=== PATIENT | male | born 1960 | race Caucasian/White ===

== ENCOUNTER 2024-02-24 10:25 | Outpatient (CLI) | payer OTHER, SELFPAY ==
--- NOTE | 2024-02-24 10:33 | XR_ITS ---
WS: [email or web address] XR knee LT 1-2V [id number] REASON FOR EXAM: JOINT PAIN FINDINGS: No fracture or focal bone lesion. There is deformity of the medial tibial plateau suggesting previous tibial plateau fracture. There is moderate narrowing of the medial knee joint space with moderate subchondral sclerosis and marginal o steophytosis. There is a significant medial shift of the femur. Mild narrowing of the lateral knee joint space with moderate subchondral sclerosis and significant ma rginal osteophytosis. Patellofemoral joint space is intact with moderate subchondral sclerosis and osteophytosis of the pat carl. Moderate osteophytosis of the femoral condyles. XR/XR knee LT 1-2V [id number] IMPRESSION: Moderate to significant osteoarthritis of the left knee joint, possibly post tr aumatic.
--- NOTE | 2024-02-24 10:33 | XR_ITS ---
WS: [email or web address] XR shoulder RT min 2V* [id number] REASON FOR EXAM: JOINT PAIN FINDINGS: No fracture or focal bone lesion. Mild narrowing of the acromioclavicular joint with mild subchondral sclerosis and moderate marginal o steophytosis. The glenohumeral joint space is not optimally demonstrated. There is significant osteophytosis of the humeral head and moderate subchondral sclerosis in the greg oid. Moderate subchondral sclerosis in the greater tuberosity. XR/XR shoulder RT min 2V* [id number] IMPRESSION: Moderate osteoarthritis at the acromioclavicular joint. Glenohumeral joint space is not optimally demonstrated. There are findings sugg esting significant osteoarthritis in the glenohumeral joint. Moderate rotator cuff tendon arthropathy.
--- NOTE | 2024-02-24 10:33 | XR_ITS ---
WS: [email or web address] XR lumbar spine 2-3V* [id number] REASON FOR EXAM: JOINT PAIN FINDINGS: Moderate levoscoliosis of the lumbar spine relatively normal lordosis. Moderate wedge-shaped compression deformity of L2 with associated vertebral body sclerosis. Mild wedge-shaped compression deformity of L1 and biconcave compression deformities of L3-L5 which ap pear chronic. Intervertebral disc spaces are intact and relatively well preserved. Moderate degenerative arthropathy in the facet joints at L5-S1. XR/XR lumbar spine 2-3V* [id number] IMPRESSION: Compression fracture of L2 of unknown chronicity.
== END 2024-02-24 10:26 | disposition home or self-care (01) ==
LOC: RAD 10:28
PROVIDERS: Visit Provider Dermatology
DX: Z02.71 Encounter for disability determination (principal); M19.011 Primary osteoarthritis, right shoulder; M75.101 Unspecified rotator cuff tear or rupture of right shoulder, not specified as traumatic; M48.56XA Collapsed vertebra, not elsewhere classified, lumbar region, initial encounter for fracture; M41.86 Other forms of scoliosis, lumbar region; M46.96 Unspecified inflammatory spondylopathy, lumbar region; M17.12 Unilateral primary osteoarthritis, left knee; M25.861 Other specified joint disorders, right knee; M25.762 Osteophyte, left knee
CPT/HCPCS: 72100; 73030; 73560

== ENCOUNTER 2024-12-23 03:16 | Emergency (ER) | payer BC, SELFPAY ==
[2024-12-23 03:20] VITALS: BP 161/103; PULSE 97; RESP 18; TEMP 36.4; O2SAT 98; BMI 25.2
--- NOTE | 2024-12-23 03:20 | ECG_ITS ---
[facility]: 2024-[facility]-23 Pat Name: Ricky Fonseca Department: Room: Gender: Male Crusher Operator: : 1960 Requested By: Amber Yu Order Number: [id number] Reading MD: Measurements Intervals [place] Rate: 93 P: 70 NV: 180 QRS: 2 QRSD: 90 T: 71 QT: 391 QTc: 486 Interpretive Statements SINUS RHYTHM NONSPECIFIC T-WAVE ABNORMALITY [email or web address]
--- NOTE | 2024-12-23 03:20 | CTR_ITS ---
PROCEDURE INFORMATION: Exam: CT Head Without Contrast Exam date and time: 12/23/2024 3:19 AM Age: 64 years old Clinical indication: Stroke-like symptoms; RT upper extremity and RT lower extremity weakness; Additional info: Possible stroke TECHNIQUE: Imaging protocol: Computed tomography of the head without contrast. Radiation optimization: All CT scans at this facility use at least one of these dose optimization techniques: automated exposure control; mA and/or kV adjustment per patient size (includes targeted exams where dose is matched to clinical indication); or iterative reconstruction. Other technique: STROKE PROTOCOL was implemented. COMPARISON: No relevant prior studies available. RADIATION DOSE METRICS: Total DLP (mGy-cm): 1152.98 FINDINGS: Brain: Normal. No hemorrhage. Unremarkable white matter. No mass effect. Cerebral ventricles: No ventriculomegaly. Paranasal sinuses: Visualized sinuses are unremarkable. No fluid levels. Mastoid air cells: Visualized mastoid air cells are well aerated. Bones: Unremarkable. No acute fracture. Soft tissues: Unremarkable. CT/CT head thrombolytic [id number] IMPRESSION: No acute intracranial abnormality. ASSESSMENT: ASPECTS (Rere Stroke Program Early CT Score) is 10.
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
[2024-12-23 03:31] VITALS: BP 161/103
[2024-12-23 03:44] LABS: Basophils % 0.5 %; Eosinophils # 0.2 10^3/uL (0.0-0.8); Eosinophils % 2.6 %; Hematocrit 45.8 % (37-53); Lymphocytes # 1.1 10^3/uL (0.8-4.8); Lymphocytes % 18.8 %; Mean Corpuscular HGB Conc 34.5 g/dL (30-55); Mean Corpuscular Hemoglobin 32.6 pg (27-33); Mean Corpuscular Volume 94.6 fl (82-101); Mean Platelet Volume 9.7 fL (7.4-10.4); Monocytes # 0.6 10^3/uL (0.2-0.9); Monocytes % 9.6 %; Neutrophils # 3.88 10^3/uL (1.8-7.7); Neutrophils % 68.1 %; Nucleated Red Blood Cells % 0 %; Platelet Count 215 10^3/cmm (157-399); Red Blood Count 4.84 10^6/uL (3.85-5.65); Red Cell Distribution Width 12.8 % (12.1-15.1)
[2024-12-23 03:55] LABS: INR 0.85 (0.8-1.2); Partial Thromboplastin Time 25.2 SECONDS (23.9-36.7)
[2024-12-23 04:03] LABS: Alanine Aminotransferase 21 U/L (0-41); Albumin Level 4.3 g/dL (3.5-5.2); Alkaline Phosphatase 101 U/L (40-130); Aspartate Amino Transferase 23 U/L (0-40); Blood Urea Nitrogen 18 mg/dL (8-23); Calcium 8.9 mg/dL (8.5-10.5); Carbon Dioxide 25 mmol/L (22-29); Chloride 102 mmol/L (98-107); Creatinine Clr Calc Pharmacy 92.0674; Glomerular Filtration Rate 97.6 mL/min (90-130); Glucose 100 mg/dL (65-115); Osmolality Calculated 288 mOsm/kg (285-295); Sodium 138 mmol/L (136-145); Total Bilirubin 0.5 mg/dL (0.15-1.2); Total Protein 7.3 g/dL (6.6-8.7)
[2024-12-23 04:08] LABS: Anion Gap 14.7 (5-19); Potassium 3.7 mmol/L (3.5-5.1)
[2024-12-23 04:16] VITALS: BP 159/108; PULSE 89; RESP 16; O2SAT 99
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
[2024-12-23 05:17] VITALS: BP 157/96; PULSE 93; O2SAT 98
== END 2024-12-23 05:18 | disposition home or self-care (01) ==
PROVIDERS: Emergency Provider Emergency Medicine
DX: M54.10 Radiculopathy, site unspecified (principal); R53.1 Weakness; Z72.0 Tobacco use
CPT/HCPCS: 70450; 80053; 85025; 85610; 85730; 93005; 99284

== ENCOUNTER → 2024-12-24 14:43 | Outpatient (BNVA) | payer BC, SELFPAY | PROVIDERS: Visit Provider Nurse Practitioner Family | DX: M54.50 Low back pain, unspecified (principal); M54.16 Radiculopathy, lumbar region | CPT/HCPCS: 80061; 84443 ==

== ENCOUNTER 2024-12-25 09:15 | Outpatient (CLI) | payer BC, SELFPAY ==
--- NOTE | 2024-12-25 09:20 | XR_ITS ---
WS: [email or web address] XR lumbar spine 2-3V* [id number] REASON FOR EXAM: M54.50 - Low back pain, unspecified FINDINGS: Moderate rotatory levoscoliosis. Mild straightening of the upper lumbar spine. Moderate old compression fracture of L2 with mild posterior retropulsion of the posterior inferior vertebral body, and mild wedge-shaped compression deformity of L1 unchanged compared to 02/24/2024. Mild narrowing of the L1-L2 disc space. The remaining disc spaces are intact and relatively well preserved. No spondylolysis with no significant spondylolisthesis. XR/XR lumbar spine 2-3V* [id number] IMPRESSION: Old compression fractures and degenerative spondylosis which are stable compare d to 02/24/2024. Remainder of the lumbar spine is unchanged.
--- NOTE | 2024-12-25 09:20 | XR_ITS ---
WS: [email or web address] XR cervical spine 3V* [id number] REASON FOR EXAM: M54.2 - Cervicalgia FINDINGS: Relatively normal lordosis. No vertebral body lesion or significant compression deformity. Normal odontoid. Mild narrowing of the C5-C6 disc space. Mild anterior and posterior osteophytosis C4-C7. Bilateral calcified carotid artery plaque. Normal facet joint alignment with mild degenerative arthropathy. No significant neutral listhesis. Incidental benign intracranial calcification. XR/XR cervical spine 3V* [id number] IMPRESSION: Mild degenerative spondylosis in the cervical spine as above. Bilateral calcified carotid artery plaque.
== END 2024-12-25 09:16 | disposition home or self-care (01) ==
PROVIDERS: PCP Nurse Practitioner Family; Visit Provider Nurse Practitioner Family
DX: M54.16 Radiculopathy, lumbar region (principal); G89.29 Other chronic pain; R29.898 Other symptoms and signs involving the musculoskeletal system; M47.896 Other spondylosis, lumbar region; M50.322 Other cervical disc degeneration at C5-C6 level; M25.78 Osteophyte, vertebrae; I65.23 Occlusion and stenosis of bilateral carotid arteries; M47.892 Other spondylosis, cervical region; I67.2 Cerebral atherosclerosis; M41.86 Other forms of scoliosis, lumbar region; M48.56XD Collapsed vertebra, not elsewhere classified, lumbar region, subsequent encounter for fracture with routine healing
CPT/HCPCS: 72040; 72100

== ENCOUNTER 2025-03-02 12:00 | Outpatient (CLI) | payer BC, MEDICAID, SELFPAY ==
--- NOTE | 2025-03-02 12:06 | XRR_ITS ---
PROCEDURE INFORMATION: Exam: XR Sacrum and Coccyx, 2 or More Views Exam date and time: 03/02/2025 12:18 PM Age: 65 years old Clinical indication: Pain; Lumbago; Sciatica symptoms not specified; Additional info: Chronic lower back pain TECHNIQUE: Imaging protocol: XR of the sacrum and coccyx, 2 or more views. COMPARISON: CR XR lumbar spine 2-3V* [id number] 03/02/2025 12:18 PM FINDINGS: Bones/joints: Normal. No acute fracture. Soft tissues: Normal. Vasculature: Aortoiliac atherosclerotic disease. XR/XR sacrum coccyx min 2V [id number] IMPRESSION: No acute osseous abnormality.
--- NOTE | 2025-03-02 12:06 | XRR_ITS ---
PROCEDURE INFORMATION: Exam: XR Lumbosacral Spine Exam date and time: 03/02/2025 12:18 PM Age: 65 years old Clinical indication: Low back pain; Additional info: Chronic lower back pain TECHNIQUE: Imaging protocol: Radiologic exam of the lumbosacral spine. Views: 2 or 3 views. COMPARISON: CR XR lumbar spine 2-3V* [id number] 12/25/2024 9:50 AM FINDINGS: Bones/joints: Mild thoracolumbar levoscoliosis. No subluxation. Chronic compression fractures at T11, L1, L2, and L4 without significant change. Multilevel marginal spurring. No acute fracture. Soft tissues: Unremarkable. XR/XR lumbar spine 2-3V* [id number] IMPRESSION: 1. Chronic compression fractures at T11, L1, L2, and L4 without significant change. 2. Multilevel lumbar spondylosis without evidence of acute osseous abnormality.
== END 2025-03-02 12:01 | disposition home or self-care (01) ==
LOC: RAD 12:03
PROVIDERS: PCP Nurse Practitioner Family; Visit Provider Internal Medicine
DX: M47.816 Spondylosis without myelopathy or radiculopathy, lumbar region (principal); M84.48XA Pathological fracture, other site, initial encounter for fracture
CPT/HCPCS: 72100; 72220

== ENCOUNTER → 2025-07-29 11:09 | Outpatient (BNVA) | payer BC, MEDICAID, SELFPAY | PROVIDERS: PCP Nurse Practitioner Family; Visit Provider Nurse Practitioner Family | DX: Z13.6 Encounter for screening for cardiovascular disorders (principal); Z12.5 Encounter for screening for malignant neoplasm of prostate | CPT/HCPCS: 80053; 80061; 83036; 84443; 85025; G0103 ==

== ENCOUNTER 2025-08-12 12:51 | Outpatient (CLI) | payer BC, MEDICAID, SELFPAY ==
--- NOTE | 2025-08-12 13:00 | MR_ITS ---
WS: [id number] MRI LEFT KNEE HISTORY: M25.562 - Pain in left knee COMPARISON: Radiograph 02/24/2024 Anterior cruciate ligament: Completely torn ACL. Posterior cruciate ligament: Mild increased signal in the PCL but no tear. Medial collateral ligament: Interstitial tear throughout the medial collateral ligament. MCL is being displaced from the joint line by osteophytes and meniscus. Posterior lateral corner structures: No full-thickness tear. Medial menisci: No identifiable meniscal tissue identified. Complex tears with extrusion from the joint line. Lateral meniscus: Small caliber anterior and posterior horns. Complex tear in the meniscal root with the posterior horn. Extensor mechanism: Distal quadriceps tendon and patellar tendons are intact. Fluid and soft tissue: Small joint effusion. Intra-articular body within the joint effusion. This may be an osteophyte from the anterior femoral condyle projecting medially. Tiny Iqbal's cyst. Osseous and articular structures: Patellofemoral compartment: Marked narrowing of the patellofemoral joint space. Mild chondromalacia involving the patellar cartilage. Medial compartment: Severe narrowing of the medial compartment. Complete loss of cartilage. Edema in the femoral condyle and tibial plateau with large marginal osteophytes. Lateral compartment: Marked narrowing of the lateral compartment. Moderate chondromalacia. Marginal osteophytes. Small amount of edema along the tibial plateau. Lobulated cystic mass posterior to the medial femoral condyle is probably a ganglion. MR/MR knee LT wo con* [id number] IMPRESSION: 1. Severe degenerative osteoarthritic changes involving the LEFT knee. 2. Torn ACL. 3. Severe medial and lateral compartment joint space narrowing with loss of ca rtilage and marrow edema. 4. Marked narrowing patellofemoral joint with mild chondromalacia. 5. Interstitial MCL tear. 6. No identifiable meniscal tissue in the medial knee consistent with complex tears and extrusion from the joint. 7. Anterior and posterior horns of the lateral knee are also small caliber. Co mplex tear meniscal root in the posterior horn. 8. Joint effusion with intra-articular body versus osteophyte from the femoral condyle. 9. Lobulated cystic mass posterior to the femoral condyle is probably a gangli on. 10. Large osteophytes from the femoral condyles and tibial plateaus along with degenerative marrow edema throughout the knee.
== END 2025-08-12 12:52 | disposition home or self-care (01) ==
LOC: RAD 12:52
PROVIDERS: PCP Nurse Practitioner Family; Visit Provider Nurse Practitioner Family
DX: M25.562 Pain in left knee (principal); G89.29 Other chronic pain; M17.9 Osteoarthritis of knee, unspecified; M17.12 Unilateral primary osteoarthritis, left knee; S83.512A Sprain of anterior cruciate ligament of left knee, initial encounter; S83.412A Sprain of medial collateral ligament of left knee, initial encounter; S83.282A Other tear of lateral meniscus, current injury, left knee, initial encounter; S83.242A Other tear of medial meniscus, current injury, left knee, initial encounter; X58.XXXA Exposure to other specified factors, initial encounter; M25.862 Other specified joint disorders, left knee; M22.2X2 Patellofemoral disorders, left knee; R93.6 Abnormal findings on diagnostic imaging of limbs; M25.462 Effusion, left knee; M25.762 Osteophyte, left knee; R60.0 Localized edema; M94.262 Chondromalacia, left knee
CPT/HCPCS: 73721

== ENCOUNTER → 2025-08-31 11:33 | Outpatient (BNVA) | payer MEDICAID, SELFPAY | PROVIDERS: PCP Nurse Practitioner Family; Visit Provider Orthopaedic Surgery | DX: M25.561 Pain in right knee (principal); M25.562 Pain in left knee; G89.29 Other chronic pain; M17.0 Bilateral primary osteoarthritis of knee | CPT/HCPCS: 73560; 73565; 99204 ==

== ENCOUNTER → 2025-09-20 15:34 | Outpatient (BNVA) | payer MEDICAID, SELFPAY | PROVIDERS: PCP Nurse Practitioner Family; Visit Provider Nurse Practitioner Family | DX: R97.20 Elevated prostate specific antigen [PSA] (principal) | CPT/HCPCS: 84153 ==